=== PATIENT | male | born 1980 | race Caucasian/White ===

== ENCOUNTER 2017-01-09 16:04 | Emergency (ER) | payer SELFPAY ==
[2017-01-09] MEDS ORDERED: SODIUM CHLORIDE 0.9% (FLUSH) 10 ML SYG IV PRN (16:18)
[2017-01-09] MEDS ORDERED: ASPIRIN TABLET 325 MG TAB PO ONE (16:18)
[2017-01-09] MEDS ORDERED: NITROGLYCERIN 0.4 MG 25 EA TAB SL ONE (16:18)
--- NOTE | 2017-01-09 16:20 | ED.PDOC ---
History of Present Illness - General Chief Complaint: Chest Pain/FL Stated Complaint: chest pain Time Seen by Provider: 01/09/17 16:17 Source: patient, RN notes reviewed, Vital Signs reviewed Exam Limitations: no limitations - History of Present Illness Initial Comments: Mr. Ashok Delaney 36 y/o male with no medical problem stated he had onset of sharp chest pains which started yesterday been constant radiating to his neck, upper back,left arm.Took aleve and was able to sleep for 9 1/2 hours and on waking up pain still present but did not bother him from his sleep.No dizziness, no diaphoresis,no nausea,vomiting Timing/Duration: 1-3 hours, 24 hours, constant Severity: moderate Location: central Activities at Onset: rest Prior Chest Pain/Cardiac Workup: no prior chest pain, no prior cardiac workup Improving Factors: nothing Worsening Factors: nothing Nitro Today/Relief: no nitro taken today, 0.4 mg x 1, provided by ED Aspirin Treatment Today: no aspirin today, 325 mg x 1, provided by ED Associated Symptoms: denies symptoms Allergies/Adverse Reactions: Allergies Penicillins Allergy (Verified 08/11/15 20:57) Home Medications: Ambulatory Orders NK [NK] 08/11/15 Review of Systems - Review of Systems Constitutional: States: no symptoms reported EENTM: States: no symptoms reported Respiratory: States: no symptoms reported Cardiology: States: see HPI Gastrointestinal/Abdominal: States: no symptoms reported Genitourinary: States: no symptoms reported Musculoskeletal: States: no symptoms reported Skin: States: no symptoms reported Neurological: States: no symptoms reported Endocrine: States: no symptoms reported Hematologic/Lymphatic: States: no symptoms reported Past Medical History (General) - Patient Medical History Hx Congestive Heart Failure: No Hx Diabetes: No - Vaccination History Hx Tetanus, Diphtheria Vaccination: No Hx Influenza Vaccination: No Hx Pneumococcal Vaccination: No - Social History Hx Tobacco Use: Yes Hx Chewing Tobacco Use: No Hx Alcohol Use: No Hx Substance Use: No Hx Substance Use Treatment: No Hx Depression: No Hx Physical Abuse: No Hx Emotional Abuse: No Hx Suspected Abuse: No - Female History Patient : No Family Medical History - Family History Father Family History: No Known Living Status: Unknown Physical Exam - Physical Exam General Appearance: Alert, Comfortable, No apparent distress Eyes, Ears, Nose, Throat Exam: PERRL/EOMI, normal ENT inspection, TMs normal, pharynx normal Neck: non-tender, full range of motion, supple, normal inspection Respiratory: chest non-tender, lungs clear, normal breath sounds, no respiratory distress Cardiovascular/Chest: normal peripheral pulses, regular rate, rhythm, no edema, no gallop, no JVD, no murmur Peripheral Pulses: radial,right: 2+, radial,left: 2+ Gastrointestinal/Abdominal: normal bowel sounds, non tender, soft, no organomegaly Extremity: normal range of motion, non-tender, normal inspection, no pedal edema , no calf tenderness Skin Exam: normal color, warm/dry Lymphatic: no adenopathy Progress - Results/Orders Results/Orders: 01/09/17 16:18 Telemetry .ONCE Sodium Chloride 0.9% (Flush) [Saline Flush Syringe] 10 ml IV PRN PRN EKG Stat Pulse Ox Stat 01/09/17 16:19 URINE DRUG SCREEN, 7 ASSAY Stat URINALYSIS Stat 01/09/17 17:45 EKG STAT Laboratory Results WBC 8.6 K/mm3 (4.8-10.8) 01/09/17 16:35 RBC 4.72 M/mm3 (4.70-6.10) 01/09/17 16:35 Hgb 13.6 gm/dL (14.0-18.0) L 01/09/17 16:35 Hct 40.6 % (42.0-52.0) L 01/09/17 16:35 MCV 86.0 fl (80.0-94.0) 01/09/17 16:35 MCH 28.8 pg (27.0-31.0) 01/09/17 16:35 MCHC 33.6 g/dL (33.0-37.0) 01/09/17 16:35 RDW 13.5 % (11.5-14.5) 01/09/17 16:35 Plt Count 254 K/mm3 (130-400) 01/09/17 16:35 MPV 7.8 fl (7.40-10.4) 01/09/17 16:35 Absolute Neuts (auto) 6.80 K/uL (1.8-6.8) 01/09/17 16:35 Absolute Lymphs (auto) 1.10 K/uL (1.0-3.4) 01/09/17 16:35 Absolute Monos (auto) 0.50 K/uL (0.2-0.8) 01/09/17 16:35 Absolute Eos (auto) 0.20 K/uL (0.0-0.4) 01/09/17 16:35 Absolute Basos (auto) 0.10 K/uL (0.0-0.1) 01/09/17 16:35 Neutrophils % 78.4 % (42.0-78.0) H 01/09/17 16:35 Lymphocytes % 13.0 % (20.0-50.0) L 01/09/17 16:35 Monocytes % 6.0 % (2.0-9.0) 01/09/17 16:35 Eosinophils % 2.0 % (1.0-5.0) 01/09/17 16:35 Basophils % 0.6 % (0.0-2.0) 01/09/17 16:35 PT 11.8 SECONDS (9.4-12.5) 01/09/17 16:35 INR 1.040 01/09/17 16:35 PTT (SP) 29.1 SECONDS (25.1-36.5) 01/09/17 16:35 D-Dimer, Quantitative < 200 ng/mL (0-230) 01/09/17 16:35 Sodium 137 mmol/L (135-145) 01/09/17 16:35 Potassium 3.6 mmol/L (3.6-5.0) 01/09/17 16:35 Chloride 103 mmol/L (101-111) 01/09/17 16:35 Carbon Dioxide 26 mmol/L (21-31) 01/09/17 16:35 Anion Gap 11.6 (12-18) L 01/09/17 16:35 BUN 24 mg/dL (7-18) H 01/09/17 16:35 Creatinine 0.87 mg/dL (0.6-1.3) 01/09/17 16:35 BUN/Creatinine Ratio 27.6 (10-20) H 01/09/17 16:35 Random Glucose 100 mg/dL (70-105) 01/09/17 16:35 Serum Osmolality 277.9 mOsm/L (275-295) 01/09/17 16:35 Calcium 9.2 mg/dL (8.4-10.2) 01/09/17 16:35 Magnesium 2.1 mg/dL (1.8-2.5) 01/09/17 16:35 Total Bilirubin 0.6 mg/dL (0.2-1.0) 01/09/17 16:35 Direct Bilirubin 0.1 mg/dL (0-0.2) 01/09/17 16:35 Indirect Bilirubin 0.5 mg/dL (0.2-0.8) 01/09/17 16:35 AST 29 IU/L (10-42) 01/09/17 16:35 ALT 44 IU/L (10-60) 01/09/17 16:35 Alkaline Phosphatase 95 IU/L (42-121) 01/09/17 16:35 Creatine Kinase 104 IU/L (38-174) 01/09/17 16:35 CK-MB (CK-2) 1.9 ng/mL (0.0-4.4) 01/09/17 16:35 CK-MB (CK-2) % Not Reportable 01/09/17 16:35 Troponin I < 0.02 ng/mL (0.01-0.05) 01/09/17 18:45 B-Natriuretic Peptide 13.3 pg/ml (0-100) 01/09/17 16:35 Serum Total Protein 7.7 gm/dL (6.4-8.2) 01/09/17 16:35 Albumin 4.1 g/dl (3.2-5.5) 01/09/17 16:35 - EKG/XRAY/CT EKG: Sinus, no ST T wave changes Comments: NSR XRAY: chest - no acute changes - Additional EKG/XRAY/Consults EKG #2: no ST T wave changes Comments: NSR Departure - Departure Clinical Impression: Chest pain Qualifiers: Chest pain type: unspecified Qualified Code(s): R07.9 - Chest pain, unspecified Time of Disposition: 19:43 Disposition: Discharge to Home or Self Care Condition: Good Departure Forms: ED Discharge - Pt. Copy, Patient Portal Self Enrollment Instructions: DI for Atypical Chest Pain Home Medications: Ambulatory Orders NK [NK] 08/11/15 Additional Instructions: RETURN TO EMERGENCY ROOM NEEDED ;NEED TO CALL UP PRIMARY MD FOR REFERRAL TO [facility]
--- NOTE | 2017-01-09 16:54 | RAD ---
PROCEDURE: XR CHEST 1 VIEW HISTORY: pain COMPARISON: None TECHNIQUE: Single projection of the chest was done. FINDINGS: The lung reza are well inflated . There are no discrete airspace infiltrates, pneumothoraces or pleural effusions. The pulmonary vascularity is normal. The cardiomediastinal silhouette is unremarkable for patient's age and sex. IMPRESSION: There is no acute pleural-parenchymal process seen in the imaged lung reza. Location of Interpretation: [facility] Electronically signed by: Angel Roman MD 01/09/2017 4:54 PM CDT
[2017-01-09 19:45] VITALS: TEMP 97.5
[2017-01-09] MEDS ORDERED: ORPHENADRINE CITRATE 30 MG/ML AMP IV ONE (19:45)
[2017-01-09] MEDS ORDERED: KETOROLAC TROMETHAMINE INJ 30 MG/ML VIAL IV ONE (19:45)
[2017-01-09 21:29] VITALS: BP 124/70; O2SAT 97
== END 2017-01-09 21:23 | disposition home or self-care (01) ==
LOC: ER 16:04
DX: R07.9 Chest pain, unspecified (principal); Z87.891 Personal history of nicotine dependence; Z88.0 Allergy status to penicillin
CPT/HCPCS: 36415; 71010; 80048; 80076; 82550; 82553; 83880; 84484; 85025; 85379; 85610; 85730; 93005; J1885; J2360

== ENCOUNTER 2017-11-19 19:08 | Emergency (ER) | payer SELFPAY ==
[2017-11-19 19:32] VITALS: O2SAT 97
--- NOTE | 2017-11-19 20:45 | RAD ---
EXAM DESCRIPTION: Elbow,Right 3 Views CLINICAL HISTORY: lateral elbow pain with mvt after moving couch COMPARISON: None FINDINGS: AP, lateral and oblique views of the right elbow were submitted. There is no acute fracture or dislocation. Bone mineralization is within normal limits. There is no radiopaque foreign body material. IMPRESSION: No acute fracture or dislocation. Electronically signed by: Fahad Melgar MD 11/19/2017 8:44 PM TRACK DRESSER
--- NOTE | 2017-11-19 20:48 | ED.PDOC ---
History of Present Illness - General Chief Complaint: Upper Extremity Injury Stated Complaint: Rt elbow injury Time Seen by Provider: 11/19/17 19:17 Source: patient Exam Limitations: no limitations - History of Present Illness Initial Comments: the patient's 37-year-old male presenting to emergency room secondary to pain in his right elbow. He was moving a couch when he thinks that he may have hyperextended it and felt a pop in the elbow. Pain is towards the lateral upper aspect of the elbow. He is neurovascularly intact. Range of motion is preserved. Strength is preserved. I feel no evidence of any bald muscle suggesting a torn muscle. There is no bruising. No definite swelling.no other injuries. Timing/Duration: 4-6 hours Severity: moderate Improving Factors: nothing Worsening Factors: movement Associated Symptoms: denies symptoms Allergies/Adverse Reactions: Allergies Penicillins Allergy (Verified 11/19/17 19:32) Home Medications: Ambulatory Orders NK [NK] 08/11/15 Review of Systems - Review of Systems Constitutional: States: no symptoms reported EENTM: States: no symptoms reported Respiratory: States: see HPI Cardiology: States: no symptoms reported Gastrointestinal/Abdominal: States: no symptoms reported Genitourinary: States: no symptoms reported Musculoskeletal: States: see HPI Skin: States: no symptoms reported Neurological: States: no symptoms reported Endocrine: States: no symptoms reported All other Systems: No Change from Baseline Past Medical History (General) - Patient Medical History Hx Seizures: No Hx Dementia: No Hx Asthma: No Hx of COPD: No Hx Cardiac Disorders: No Hx Congestive Heart Failure: No Hx Pacemaker: No Hx Hypertension: No Hx Thyroid Disease: No Hx Diabetes: No Hx Gastroesophageal Reflux: No Hx Renal Disease: No Hx Cancer: No Hx of HIV: No Hx Hepatitis C: No Hx MRSA: No Surgical History: tonsillectomy, other - Vaccination History Hx Tetanus, Diphtheria Vaccination: Yes Hx Influenza Vaccination: No Hx Pneumococcal Vaccination: No - Social History Hx Tobacco Use: No Hx Chewing Tobacco Use: No Hx Alcohol Use: No Hx Substance Use: No Hx Substance Use Treatment: No Hx Depression: No Hx Physical Abuse: No Hx Emotional Abuse: No Hx Suspected Abuse: No - Female History Patient : No - Triage Comment ED Triage Comment: Presents to ED--POV--Amb--c/o Rt elbow injury from moving crouch at 1845 tonight states. States he heard it "Pop". Rt radial pulses + strong and regular with cap refill < 3 sec. Pain 6/10 states. Ice pack given and placed on pillow. Family Medical History - Family History Father Family History: No Known Living Status: Unknown Physical Exam - Physical Exam General Appearance: Alert, Comfortable, No apparent distress Eye Exam: bilateral normal Ears, Nose, Throat: hearing grossly normal Neck: full range of motion, supple Respiratory: no respiratory distress, no accessory muscle use Cardiovascular/Chest: normal peripheral pulses, no edema Peripheral Pulses: radial,right: 2+, radial,left: 2+ Gastrointestinal/Abdominal: non tender, soft Rectal Exam: deferred Back Exam: no CVA tenderness, no vertebral tenderness Extremity: normal range of motion, no pedal edema, normal capillary refill, other - ee history of present illness. The patient is neurovascularly preserved. Neurologic: lead trainer II-XII nml as tested, no motor/sensory deficits, alert, normal mood/affect, oriented x 3 Skin Exam: normal color Comments: Vital Signs - 24 hr 11/19/17 19:24 Temperature 99.0 F Pulse Rate [ 74 monitor] Respiratory 20 Rate Blood Pressure 115/72 [monitor] O2 Sat by Pulse 97 Oximetry Progress - Progress Progress: 11/19/17 20:48 the patient is a 37-year-old male presenting to the emergency room secondary to right elbow pain that is likely simply from a ligament or tendon strain. No evidence of any fracture or dislocation. X-rays negative for any of the above. The patient can use ibuprofen or Aleve twice daily for the next several days to help reduce irritation. He does need to do range of motion exercises. No heavy lifting for at least the next week with that arm. Departure - Departure Clinical Impression: Strain of elbow, right Disposition: Discharge to Home or Self Care Condition: Good Departure Forms: ED Discharge - Pt. Copy, Patient Portal Self Enrollment Diet: regular diet Activity: increase activity as tolerated Referrals: Libby Kilgore NP [Primary Care Provider] - 1-2 Weeks Home Medications: Ambulatory Orders NK [NK] 08/11/15 Additional Instructions: the patient is a 37-year-old male presenting to the emergency room secondary to right elbow pain that is likely simply from a ligament or tendon strain. No evidence of any fracture or dislocation. X-rays negative for any of the above. The patient can use ibuprofen or Aleve twice daily for the next several days to help reduce irritation. He does need to do range of motion exercises. No heavy lifting for at least the next week with that arm.
[2017-11-19 20:55] VITALS: BP 112/76; TEMP 98.7
--- NOTE | 2017-11-20 10:02 | RAD ---
EXAM DESCRIPTION: Elbow,Right 3 Views CLINICAL HISTORY: lateral elbow pain with mvt after moving couch COMPARISON: None FINDINGS: AP, lateral and oblique views of the right elbow were submitted. There is no acute fracture or dislocation. Bone mineralization is within normal limits. There is no radiopaque foreign body material. IMPRESSION: No acute fracture or dislocation. Electronically signed by: Fahad Melgar MD 11/19/2017 8:44 PM SENIOR CARE MANAGER
== END 2017-11-19 20:55 | disposition home or self-care (01) ==
LOC: ER 19:08
DX: S46.811A Strain of other muscles, fascia and tendons at shoulder and upper arm level, right arm, initial encounter (principal); X58.XXXA Exposure to other specified factors, initial encounter